=== PATIENT | male | born 1980 | race African-American/Black ===

== ENCOUNTER 2025-03-22 23:23 | Emergency (ER) | payer MEDICAID ==
[~2025-03-22] VITALS: Ht 175.3 cm; Wt 96.0 kg
[2025-03-22 23:36] VITALS: O2SAT 100
[2025-03-23 03:15] LABS: BASOPHILS % 0.8 % (0.0-2.0); EOSINOPHILS % 3.5 % (0.0-5.0); HEMATOCRIT. 42.3 % (42.0-52.0); HEMOGLOBIN. 13.6 g/dL (14.0-18.0); LYMPHOCYTES % 36.3 % (20.0-50.0); MEAN PLATELET VOLUME 10.2 fl (7.4-10.4); MONOCYTES % 10.7 % (2.0-8.0); NEUTROPHILS % 48.7 % (40.0-76.0); PLATELET 176 x1000/uL (130-400); RED BLOOD CELL COUNT 4.91 mill/uL (4.7-6.1); RED CELL DISTRIBUTION WIDTH 14.8 % (11.6-14.6)
[2025-03-23 03:29] LABS: CREATININE 1.2 mg/dL (0.6-1.3); UREA NITROGEN BLOOD 17 mg/dL (9-23)
[2025-03-23 03:31] LABS: TROPONIN I HIGH SENSITIVITY 5 ng/L (3.0-53)
[2025-03-23 03:50] VITALS: BP 152/87; PULSE 79; RESP 14; TEMP 36.6; O2SAT 100
== END 2025-03-23 03:59 | disposition home or self-care (01) ==
LOC: ER 23:23
DX: R42 Dizziness and giddiness (principal)
CPT/HCPCS: 36415; 80048; 80320; 84484; 85025; 93005; 99284; G0480